=== PATIENT | female | born 1975 | race Caucasian/White ===

== ENCOUNTER 2018-04-15 10:48 | Emergency (ER) | payer OTHER, SELFPAY ==
[2018-04-15 11:00] VITALS: BP 118/84; PULSE 108; RESP 18; TEMP 36.4; O2SAT 98; BMI 31.9
--- NOTE | 2018-04-15 12:14 | PC.NURSE ---
pt was informed a second time about wait. informed her that Debi, [employer] or doctor will be in to see her shortly. pt reports to Jorge (pharmacy) that she has not been seen by anyone in the hospital. I reviewed what we spoke about with mom in room. requested pt to get a urine sample (second time) to help facilitate her hospital stay when provider comes in. the first time asked for a urine sample, the patient wanted to drink water. I asked her to wait on the water until provider sees her, in case they need her npo for a test or any procedure that could happen. verbalized understanding. Pt continues to be frustrated about seeing no one. emotional support. provider updated. will see pt nu.
--- NOTE | 2018-04-15 12:33 | PC.NURSE ---
Around 1100 when notifying pt that her mother was in the bathroom and will keep and eye out for her, I asked pt if there was anything else that the pt need pt stated the she needed a single male nurse. Reported to nursing.
--- NOTE | 2018-04-15 12:35 | ED.ABDPAIN ---
HPI - Abdominal Pain <LEX Benitez-BC - Last Filed: 04/15/18 23:18> General Chief Complaint: Abdominal Pain Stated Complaint: POST OP ISSUES AFTER LAPAROSCOPIC PROCEDURE Time Seen by Provider: 04/15/18 11:00 Source: patient Mode of arrival: ambulatory Limitations: no limitations History of Present Illness HPI narrative: Patient presents with chief complaint of lower abdominal pain. She states she had a laparoscopic hysterectomy recently and has been having pain since the surgery. She states that the cramping and stabbing pain in her lower abdomen has worsened over the past several days. She states her physician told her to come to the emergency department last Friday and sent records then. She states she did not want to come and last Friday so she came in today. Patient denies subjective fevers, complains of nausea. She denies vomiting, denies diarrhea. States she has a bowel movement every day was constipated for a while to go [id number]-[id number] medications for it. Her last bowel movement was this morning she states it was a half cup or half-dollar size. She states that there was some blood. She states she does have hemorrhoids. She denies lightheadedness and dizziness, but does complain of overall fatigue. She later complained of some pinkish vaginal discharge that had an odor but did not complain about this upon arrival. She denies dysuria urgency and frequency. Related Data Home Medications Medication Instructions Recorded Confirmed bupropion HCl [Wellbutrin XL] 300 mg PO QAM 04/15/18 04/15/18 hydrocodone-acetaminophen 1 tab PO Q6H PRN 04/15/18 04/15/18 ibuprofen 1 tab PO Q8H PRN 04/15/18 04/15/18 lamotrigine [Lamictal] 75 mg PO DAILY 04/15/18 04/15/18 Previous Rx's Medication Instructions Recorded metronidazole 1 applicator VAG BID 5 Days gram 04/15/18 nitrofurantoin monohyd/m-cryst 100 mg PO BID #14 cap 04/15/18 [Macrobid] phenazopyridine [Azo Urinary Pain 195 mg PO .tid prn 2 Days #12 tab 04/15/18 Relief] Allergies Allergy/AdvReac Type Severity Reaction Status Date / Time Sulfa (Sulfonamide Allergy Verified 04/15/18 11:07 Antibiotics) Review of Systems <JERSON BenitezP-BC - Last Filed: 04/15/18 23:18> Review of Systems GENERAL: Denies chills, fatigue, malaise, fever, sweats. HEENT: Denies sinus pain, ear pain, sore throat, difficulty swallowing, dizziness. RESPIRATORY: Denies dyspnea, cough, wheezing, hemoptysis, sputum. CARDIOVASCULAR: Denies chest pain, palpitations, orthopnea, edema, GASTROINTESTINAL: See HPI : See HPI MUSCULOSKELETAL: denies weakness, joint pain, or bony pain SKIN: Denies rash, skin lesions, or other NEUROLOGIC: Denies weakness, headache, numbness, change in speech, confusion, seizures, incoordination. PSYCHIATRIC: No concerning psychosocial issues. 12 point review of systems is negative except for those stated above Exam <Debi Lawton CLINICAL LIAISON-BC - Last Filed: 04/15/18 23:18> Narrative Exam Narrative: GENERAL: This is a well-nourished, well-developed patient, in mild distress. HEAD: Atraumatic. Normocephalic. No temporal or scalp tenderness. EYES: Pupils equal round and reactive. Extraocular motions intact. No scleral icterus. No injection or drainage. ENT: Nose without bleeding, purulent drainage or septal hematoma. Throat without erythema, tonsillar hypertrophy or exudate. Uvula midline. Airway patent. NECK: Trachea midline. No JVD or lymphadenopathy. Supple, nontender, no meningeal signs. CARDIOVASCULAR: Regular rate and rhythm without murmurs, gallops, or rubs. RESPIRATORY: Clear to auscultation. Breath sounds equal bilaterally. No wheezes, rales, or rhonchi. GASTROINTESTINAL: Abdomen soft, diffusely tender to palpation, nondistended. No hepato-splenomegaly, or palpable masses. No guarding. Active bowel sounds all 4 quadrants EXTREMITIES: No clubbing, cyanosis, or edema. No joint tenderness, effusion, or edema noted. BACK: Nontender without deformity or crepitance. No flank tenderness. NEURO: AOx3. SKIN: No rash or erythema. : Pinkish discharge noted on pelvic exam. External hemorrhoids noted on rectal exam. Payton BOLAÑOSA with customs director. Initial Vital Signs Initial Vital Signs: Vital Signs Temperature 97.5 F L 04/15/18 11:00 Pulse Rate 108 H 04/15/18 11:00 Respiratory Rate 18 04/15/18 11:00 Blood Pressure 118/84 04/15/18 11:00 Pulse Oximetry 98 04/15/18 11:00 <Debi Rodríguez DO - Last Filed: 04/16/18 08:23> Initial Vital Signs Initial Vital Signs: Vital Signs Temperature 97.5 F L 04/15/18 11:00 Pulse Rate 108 H 04/15/18 11:00 Respiratory Rate 18 04/15/18 11:00 Blood Pressure 118/84 04/15/18 11:00 Pulse Oximetry 98 04/15/18 11:00 Procedures <DAMIÁN Benitez - Last Filed: 04/15/18 23:18> Stool Hemoccult Procedural Steps Taken: stool placed in appropriate test area, developer placed on stool and control areas and controls appropriately positive and negative Hemoccult result: negative Course <DAMIÁN Benitez - Last Filed: 04/15/18 23:18> Orders Ordered: ED Orders 04/15/18 13:05 Amylase Stat Complete Blood Count AUTO DIFF Stat Comprehensive Metabolic Panel Stat Lipase Stat 04/15/18 13:14 XR abdomen min 2V Stat 04/15/18 13:38 Urine Culture Stat Urine Microscopic Stat 04/15/18 14:29 Urinalysis and Microscopic Stat The patient presented with several different complaints throughout her stay. We attempted to address all of her complaints including her vaginal discharge, generalized abdominal pain, and weakness. We did lab work, an abdominal x-ray, pelvic exam and rectal exam. The patient arrived requesting a CT scan with contrast, however I discussed that her abdomen does not have an acute exam, she is afebrile with stable vital signs and does not have an elevated white count. The patient was noted to be rolling her eyes the nurse's, closing doors in employees faces and writing down names and notes throughout her stay. I spoke with the surgeon vector control specialist from [facility] regarding the patient, who seem surprised that she was in [place]. I performed a wet prep as well as basic lab work encourage by the surgeon. I encourage the patient to go home and rest as per the surgeon's instructions. The patient did roll her eyes and thigh when I asked to verify her allergies prior to giving her antibiotics for urinary tract infection. Vital Signs - 8 hr 04/15/18 11:00 04/15/18 14:36 Temperature 97.5 F L 99.4 F Pulse Rate 108 H 94 H Respiratory Rate 18 16 Blood Pressure 118/84 Blood Pressure [Right Arm] 113/75 Pulse Oximetry 98 98 <Debi Rodríguez DO - Last Filed: 04/16/18 08:23> Orders Ordered: ED Orders 04/15/18 13:05 Amylase Stat Complete Blood Count AUTO DIFF Stat Comprehensive Metabolic Panel Stat Lipase Stat 04/15/18 13:14 XR abdomen min 2V Stat 04/15/18 13:38 Urine Culture Stat Urine Microscopic Stat 04/15/18 14:29 Urinalysis and Microscopic Stat Vital Signs - 8 hr 04/15/18 11:00 04/15/18 14:36 Temperature 97.5 F L 99.4 F Pulse Rate 108 H 94 H Respiratory Rate 18 16 Blood Pressure 118/84 Blood Pressure [Right Arm] 113/75 Pulse Oximetry 98 98 MDM - Abdominal Pain <LEX Benitez-BC - Last Filed: 04/15/18 23:18> Differential Diagnosis Differential diagnosis: Likely abdominal pain, constipation, endometriosis and small bowel obstruction Lab Data Result diagrams: 04/15/18 13:05 04/15/18 13:05 Lab Results 04/15/18 04/15/18 04/15/18 Range/Units 13:05 13:05 13:38 WBC 8.0 (4.5-11.0) X10^3/uL RBC 3.89 L (4.0-5.2) X10^6/uL Hgb 12.8 (12.0-16.0) g/dL Hct 38.1 (36-46) % MCV 97.8 (80-100) fL MCH 32.9 (26-34) PG MCHC 33.7 (30-36) % RDW 12.2 (11.6-14.8) % Plt Count 463 H (150-400) X10^3/uL Neut % (Auto) 67.0 (50-75) % Lymph % (Auto) 24.3 L (25-40) % Crane % (Auto) 6.3 (3-14) % Eos % (Auto) 1.7 L (2-4) % Baso % (Auto) 0.7 (0-2) % Neut # (Auto) 5400 (3323-1713) /uL Sodium 144 (137-145) mmol/L Potassium 4.4 (3.4-5.1) mmol/L Chloride 105 (98-107) mmol/L Carbon Dioxide 29 (22-32) mmol/L BUN 12 (7-17) mg/dL Creatinine 0.80 (0.52-1.04) mg/dL Estimated GFR > 60.0 (>60) mL/min BUN/Creatinine Ratio 15.0 (6-22) Glucose 92 (70-100) mg/dL Calcium 9.5 (8.4-10.2) mg/dL Total Bilirubin 0.4 (0.2-1.3) mg/dL AST 29 (14-36) IU/L ALT 51 (9-52) IU/L Alkaline Phosphatase 86 (38-126) U/L Total Protein 7.4 (6.3-8.2) g/dL Albumin 4.2 (3.5-5.0) g/dL Globulin 3.2 (1.7-4.1) g/dL Albumin/Globulin Ratio 1.3 (1.0-2.8) Amylase 50 (30-110) U/L Lipase 43 (23-300) U/L Urine RBC 1-5/hpf (0-5/HPF) Urine WBC 10-30/hpf H (0-5/HPF) Ur Squamous Epith Cells 0-1 /hpf Amorphous Sediment 1+ Urine Bacteria Few (2-10) H (None) Ur Culture Indicated? Specimen cultured Micro UA Comment Not Reportable Point of care testing: Urine Dip Bedside Urine Glucose Negative Bedside Urine Bilirubin - Negative Bedside Urine Ketone - Negative Urine Specific Mcguffey 1.015 Bedside Urine Occult Blood +++ Bedside Urine pH 6.5 Bedside Urine Protein - Negative Bedside Urine Urobilinogen - Negative Bedside Urine Nitrite - Negative Bedside Urine Leukocytes ++ 125 Esterase Imaging Data Abdominal x-ray: Radiologist's impression: [address] [address] XRay Report Signed Patient: VERA MOISE LMR#: [id number] : 1975Acct:[id number] Age/Sex: 42 / FDate of Service: 04/15/18 Loc: ED Accession Number: [id number] Procedure: XR abdomen min 2V Ordering Provider: Debi Lawton CLINICAL LIAISON-BC PROCEDURE: XR ABDOMEN MIN 2V INDICATIONS: constipation TECHNIQUE: 2 views of the abdomen were acquired. COMPARISON: None. FINDINGS: Surgical changes and devices: None. Bowel: No pneumoperitoneum. The bowel gas pattern is normal. A mild to moderate amount of stool can be seen within the colon. Soft tissues: No masses; visualized solid organ contours appear normal in size. No suspicious abdominal calcifications. Bones: No suspicious bony abnormalities. Lower lumbar spine degenerative changes are seen. IMPRESSION: A mild to moderate amount of stool can be seen within the colon, which is consistent with the given history of constipation. Dictated by: Rayo Renee M.D. on 04/15/2018 at 13:50 Approved by: Rayo Renee M.D. on 04/15/2018 at 13:51 MDM Narrative Medical decision making narrative: The patient presented with chief complaint of abdominal pain, vaginal discharge, and postop fatigue. Her lab work came back largely normal. She does have a small urinary tract infection, for which I am treating her with Macrobid. Her wet prep did reveal clue cells him treating her for bacterial vaginosis with Flagyl. I discussed at length following up with primary care provider as well as her surgeon as discussed. Encouraged rest, pushing fluids and taking medications as discussed. Patient had no questions or concerns upon discharge. <Debi Rodríguez, DO - Last Filed: 04/16/18 08:23> Lab Data Lab Results 04/15/18 04/15/18 04/15/18 Range/Units 13:05 13:05 13:38 WBC 8.0 (4.5-11.0) X10^3/uL RBC 3.89 L (4.0-5.2) X10^6/uL Hgb 12.8 (12.0-16.0) g/dL Hct 38.1 (36-46) % MCV 97.8 (80-100) fL MCH 32.9 (26-34) PG MCHC 33.7 (30-36) % RDW 12.2 (11.6-14.8) % Plt Count 463 H (150-400) X10^3/uL Neut % (Auto) 67.0 (50-75) % Lymph % (Auto) 24.3 L (25-40) % Crane % (Auto) 6.3 (3-14) % Eos % (Auto) 1.7 L (2-4) % Baso % (Auto) 0.7 (0-2) % Neut # (Auto) 5400 (0477-3445) /uL Sodium 144 (137-145) mmol/L Potassium 4.4 (3.4-5.1) mmol/L Chloride 105 (98-107) mmol/L Carbon Dioxide 29 (22-32) mmol/L BUN 12 (7-17) mg/dL Creatinine 0.80 (0.52-1.04) mg/dL Estimated GFR > 60.0 (>60) mL/min BUN/Creatinine Ratio 15.0 (6-22) Glucose 92 (70-100) mg/dL Calcium 9.5 (8.4-10.2) mg/dL Total Bilirubin 0.4 (0.2-1.3) mg/dL AST 29 (14-36) IU/L ALT 51 (9-52) IU/L Alkaline Phosphatase 86 (38-126) U/L Total Protein 7.4 (6.3-8.2) g/dL Albumin 4.2 (3.5-5.0) g/dL Globulin 3.2 (1.7-4.1) g/dL Albumin/Globulin Ratio 1.3 (1.0-2.8) Amylase 50 (30-110) U/L Lipase 43 (23-300) U/L Urine RBC 1-5/hpf (0-5/HPF) Urine WBC 10-30/hpf H (0-5/HPF) Ur Squamous Epith Cells 0-1 /hpf Amorphous Sediment 1+ Urine Bacteria Few (2-10) H (None) Ur Culture Indicated? Specimen cultured Micro UA Comment Not Reportable Point of care testing: Urine Dip Bedside Urine Glucose Negative Bedside Urine Bilirubin - Negative Bedside Urine Ketone - Negative Urine Specific Mcguffey 1.015 Bedside Urine Occult Blood +++ Bedside Urine pH 6.5 Bedside Urine Protein - Negative Bedside Urine Urobilinogen - Negative Bedside Urine Nitrite - Negative Bedside Urine Leukocytes ++ 125 Esterase Discharge Plan Departure Patient Disposition: Home Clinical Impression: UTI (urinary tract infection), Constipation, Bacterial vaginosis Discharge Date/Time: 04/15/18 16:00 Interventions: ED Discharge Assessment Last Done: 04/15/18 16:02 Instructions: DI for Urinary Tract Infection (UTI), DI for Bacterial Vaginosis, DI for Constipation Activity Restrictions/Additional Instructions: I am starting on an antibiotic for urinary tract infection as well as Flagyl for bacterial vaginosis. I have given you a small prescription of pyridium associated with your UTI pain. Please follow-up with her surgeon as well as her primary care provider. Please rest, push fluids and take it easy as the surgeon encouraged. Please come back to the emergency department for any acute needs. Prescriptions: New metronidazole 0.75 % gel 1 applicator VAG BID 5 Days RF: 0 nitrofurantoin monohyd/m-cryst [Macrobid] 100 mg capsule 100 mg PO BID Qty: 14 RF: 0 phenazopyridine [Azo Urinary Pain Relief] 97.5 mg tablet 195 mg PO .tid prn 2 Days Qty: 12 RF: 0 No Action ibuprofen 800 mg tablet 1 tab PO Q8H PRN (Reason: Pain, Moderate) RF: 0 hydrocodone-acetaminophen 5-325 mg tablet 1 tab PO Q6H PRN (Reason: Pain, Moderate) RF: 0 lamotrigine [Lamictal] 25 mg Tablet 75 mg PO DAILY RF: 0 bupropion HCl [Wellbutrin XL] 300 mg Tablet Extended Release 24 Hr 300 mg PO QAM RF: 0 <Debi Rodríguez DO - Last Filed: 04/16/18 08:23> Cosign ED Attending Cosignature Attestation: I was immediately available in the department for consultation. This documentation has been reviewed and I agree with assessment and plan. Supervised by Debi Rodríguez DO
[2018-04-15 13:09] LABS: Add Manual Diff / Slide Review NO; Basophils Percent Auto 0.7 % (0-2); Eosinophils Percent Auto 1.7 % (2-4); Hematocrit 38.1 % (36-46); Hemoglobin 12.8 g/dL (12.0-16.0); Lymphocytes Percent Auto 24.3 % (25-40); Mean Corpuscular HGB Conc 33.7 % (30-36); Mean Corpuscular Hemoglobin 32.9 PG (26-34); Mean Corpuscular Volume 97.8 fL (80-100); Monocytes Percent Auto 6.3 % (3-14); Neutrophils Absolute Auto 5400 /uL (3000-5900); Platelet Count 463 X10^3/uL (150-400); Red Blood Cell Count 3.89 X10^6/uL (4.0-5.2); Red Cell Distribution Width 12.2 % (11.6-14.8)
--- NOTE | 2018-04-15 13:09 | PC.NURSE ---
explained a clean catch urine to patient. I gave her a wipe and a cup. As the I was explaining how to obtain a clean catch urine specimen, pt was closing the door in my face, rolling her eyes. PA notified.
--- NOTE | 2018-04-15 13:14 | DI.RAD.S_ITS ---
PROCEDURE: XR ABDOMEN MIN 2V INDICATIONS: constipation TECHNIQUE: 2 views of the abdomen were acquired. COMPARISON: None. FINDINGS: Surgical changes and devices: None. Bowel: No pneumoperitoneum. The bowel gas pattern is normal. A mild to moderate amount of stool can be seen within the colon. Soft tissues: No masses; visualized solid organ contours appear normal in size. No suspicious abdominal calcifications. Bones: No suspicious bony abnormalities. Lower lumbar spine degenerative changes are seen. IMPRESSION: A mild to moderate amount of stool can be seen within the colon, which is consistent with the given history of constipation. Dictated by: Rayo Renee M.D. on 04/15/2018 at 13:50 Approved by: Rayo Renee M.D. on 04/15/2018 at 13:51
--- NOTE | 2018-04-15 13:19 | ED_ITS ---
HPI - Abdominal Pain <LEX Benitez-BC - Last Filed: 04/15/18 23:18> General Chief Complaint: Abdominal Pain Stated Complaint: POST OP ISSUES AFTER LAPAROSCOPIC PROCEDURE Time Seen by Provider: 04/15/18 11:00 Source: patient Mode of arrival: ambulatory Limitations: no limitations History of Present Illness HPI narrative: Patient presents with chief complaint of lower abdominal pain. She states she had a laparoscopic hysterectomy recently and has been having pain since the surgery. She states that the cramping and stabbing pain in her lower abdomen has worsened over the past several days. She states her physician told her to come to the emergency department last Friday and sent records then. She states she did not want to come and last Friday so she came in today. Patient denies subjective fevers, complains of nausea. She denies vomiting, denies diarrhea. States she has a bowel movement every day was constipated for a while to go putw-[id number] medications for it. Her last bowel movement was this morning she states it was a half cup or half-dollar size. She states that there was some blood. She states she does have hemorrhoids. She denies lightheadedness and dizziness, but does complain of overall fatigue. She later complained of some pinkish vaginal discharge that had an odor but did not complain about this upon arrival. She denies dysuria urgency and frequency. Related Data Home Medications Medication Instructions Recorded Confirmed bupropion HCl [Wellbutrin XL] 300 mg PO QAM 04/15/18 04/15/18 hydrocodone-acetaminophen 1 tab PO Q6H PRN 04/15/18 04/15/18 ibuprofen 1 tab PO Q8H PRN 04/15/18 04/15/18 lamotrigine [Lamictal] 75 mg PO DAILY 04/15/18 04/15/18 Previous Rx's Medication Instructions Recorded metronidazole 1 applicator VAG BID 5 Days gram 04/15/18 nitrofurantoin monohyd/m-cryst 100 mg PO BID #14 cap 04/15/18 [Macrobid] phenazopyridine [Azo Urinary Pain 195 mg PO .tid prn 2 Days #12 tab 04/15/18 Relief] Allergies Allergy/AdvReac Type Severity Reaction Status Date / Time Sulfa (Sulfonamide Allergy Verified 04/15/18 11:07 Antibiotics) Review of Systems <JERSON BenitezP-BC - Last Filed: 04/15/18 23:18> Review of Systems GENERAL: Denies chills, fatigue, malaise, fever, sweats. HEENT: Denies sinus pain, ear pain, sore throat, difficulty swallowing, dizziness. RESPIRATORY: Denies dyspnea, cough, wheezing, hemoptysis, sputum. CARDIOVASCULAR: Denies chest pain, palpitations, orthopnea, edema, GASTROINTESTINAL: See HPI : See HPI MUSCULOSKELETAL: denies weakness, joint pain, or bony pain SKIN: Denies rash, skin lesions, or other NEUROLOGIC: Denies weakness, headache, numbness, change in speech, confusion, seizures, incoordination. PSYCHIATRIC: No concerning psychosocial issues. 12 point review of systems is negative except for those stated above Exam <Debi Lawton AUTOMATIC DIE CUTTING MACHINE OPERATOR-BC - Last Filed: 04/15/18 23:18> Narrative Exam Narrative: GENERAL: This is a well-nourished, well-developed patient, in mild distress. HEAD: Atraumatic. Normocephalic. No temporal or scalp tenderness. EYES: Pupils equal round and reactive. Extraocular motions intact. No scleral icterus. No injection or drainage. ENT: Nose without bleeding, purulent drainage or septal hematoma. Throat without erythema, tonsillar hypertrophy or exudate. Uvula midline. Airway patent. NECK: Trachea midline. No JVD or lymphadenopathy. Supple, nontender, no meningeal signs. CARDIOVASCULAR: Regular rate and rhythm without murmurs, gallops, or rubs. RESPIRATORY: Clear to auscultation. Breath sounds equal bilaterally. No wheezes , rales, or rhonchi. GASTROINTESTINAL: Abdomen soft, diffusely tender to palpation, nondistended. No hepato-splenomegaly, or palpable masses. No guarding. Active bowel sounds all 4 quadrants EXTREMITIES: No clubbing, cyanosis, or edema. No joint tenderness, effusion, or edema noted. BACK: Nontender without deformity or crepitance. No flank tenderness. NEURO: AOx3. SKIN: No rash or erythema. : Pinkish discharge noted on pelvic exam. External hemorrhoids noted on rectal exam. Payton BOLAÑOSA with web application dev specialist. Initial Vital Signs Initial Vital Signs: Vital Signs Temperature 97.5 F L 04/15/18 11:00 Pulse Rate 108 H 04/15/18 11:00 Respiratory Rate 18 04/15/18 11:00 Blood Pressure 118/84 04/15/18 11:00 Pulse Oximetry 98 04/15/18 11:00 <Debi Rodríguez DO - Last Filed: 04/16/18 08:23> Initial Vital Signs Initial Vital Signs: Vital Signs Temperature 97.5 F L 04/15/18 11:00 Pulse Rate 108 H 04/15/18 11:00 Respiratory Rate 18 04/15/18 11:00 Blood Pressure 118/84 04/15/18 11:00 Pulse Oximetry 98 04/15/18 11:00 Procedures <DAMIÁN Benitez - Last Filed: 04/15/18 23:18> Stool Hemoccult Procedural Steps Taken: stool placed in appropriate test area, developer placed on stool and control areas and controls appropriately positive and negative Hemoccult result: negative Course <DAMIÁN Benitez - Last Filed: 04/15/18 23:18> Orders Ordered: ED Orders 04/15/18 13:05 Amylase Stat Complete Blood Count AUTO DIFF Stat Comprehensive Metabolic Panel Stat Lipase Stat 04/15/18 13:14 XR abdomen min 2V Stat 04/15/18 13:38 Urine Culture Stat Urine Microscopic Stat 04/15/18 14:29 Urinalysis and Microscopic Stat The patient presented with several different complaints throughout her stay. We attempted to address all of her complaints including her vaginal discharge, generalized abdominal pain, and weakness. We did lab work, an abdominal x-ray, pelvic exam and rectal exam. The patient arrived requesting a CT scan with contrast, however I discussed that her abdomen does not have an acute exam, she is afebrile with stable vital signs and does not have an elevated white count. The patient was noted to be rolling her eyes the nurse's, closing doors in employees faces and writing down names and notes throughout her stay. I spoke with the surgeon clothes ironer from [facility] regarding the patient, who seem surprised that she was in [place]. I performed a wet prep as well as basic lab work encourage by the surgeon. I encourage the patient to go home and rest as per the surgeon's instructions. The patient did roll her eyes and thigh when I asked to verify her allergies prior to giving her antibiotics for urinary tract infection. Vital Signs - 8 hr 04/15/18 11:00 04/15/18 14:36 Temperature 97.5 F L 99.4 F Pulse Rate 108 H 94 H Respiratory Rate 18 16 Blood Pressure 118/84 Blood Pressure [Right Arm] 113/75 Pulse Oximetry 98 98 <Debi Rodríguez DO - Last Filed: 04/16/18 08:23> Orders Ordered: ED Orders 04/15/18 13:05 Amylase Stat Complete Blood Count AUTO DIFF Stat Comprehensive Metabolic Panel Stat Lipase Stat 04/15/18 13:14 XR abdomen min 2V Stat 04/15/18 13:38 Urine Culture Stat Urine Microscopic Stat 04/15/18 14:29 Urinalysis and Microscopic Stat Vital Signs - 8 hr 04/15/18 11:00 04/15/18 14:36 Temperature 97.5 F L 99.4 F Pulse Rate 108 H 94 H Respiratory Rate 18 16 Blood Pressure 118/84 Blood Pressure [Right Arm] 113/75 Pulse Oximetry 98 98 MDM - Abdominal Pain <LEX Benitez-BC - Last Filed: 04/15/18 23:18> Differential Diagnosis Differential diagnosis: Likely abdominal pain, constipation, endometriosis and small bowel obstruction Lab Data Result diagrams: 04/15/18 13:05 04/15/18 13:05 Lab Results 04/15/18 04/15/18 04/15/18 Range/Units 13:05 13:05 13:38 WBC 8.0 (4.5-11.0) X10^3/uL RBC 3.89 L (4.0-5.2) X10^6/uL Hgb 12.8 (12.0-16.0) g/dL Hct 38.1 (36-46) % MCV 97.8 (80-100) fL MCH 32.9 (26-34) PG MCHC 33.7 (30-36) % RDW 12.2 (11.6-14.8) % Plt Count 463 H (150-400) X10^3/uL Neut % (Auto) 67.0 (50-75) % Lymph % (Auto) 24.3 L (25-40) % Haakon % (Auto) 6.3 (3-14) % Eos % (Auto) 1.7 L (2-4) % Baso % (Auto) 0.7 (0-2) % Neut # (Auto) 5400 (0920-4666) /uL Sodium 144 (137-145) mmol/L Potassium 4.4 (3.4-5.1) mmol/L Chloride 105 (98-107) mmol/L Carbon Dioxide 29 (22-32) mmol/L BUN 12 (7-17) mg/dL Creatinine 0.80 (0.52-1.04) mg/dL Estimated GFR > 60.0 (>60) mL/min BUN/Creatinine Ratio 15.0 (6-22) Glucose 92 (70-100) mg/dL Calcium 9.5 (8.4-10.2) mg/dL Total Bilirubin 0.4 (0.2-1.3) mg/dL AST 29 (14-36) IU/L ALT 51 (9-52) IU/L Alkaline Phosphatase 86 (38-126) U/L Total Protein 7.4 (6.3-8.2) g/dL Albumin 4.2 (3.5-5.0) g/dL Globulin 3.2 (1.7-4.1) g/dL Albumin/Globulin Ratio 1.3 (1.0-2.8) Amylase 50 (30-110) U/L Lipase 43 (23-300) U/L Urine RBC 1-5/hpf (0-5/HPF) Urine WBC 10-30/hpf H (0-5/HPF) Ur Squamous Epith Cells 0-1 /hpf Amorphous Sediment 1+ Urine Bacteria Few (2-10) H (None) Ur Culture Indicated? Specimen cultured Micro UA Comment Not Reportable Point of care testing: Urine Dip Bedside Urine Glucose Negative Bedside Urine Bilirubin - Negative Bedside Urine Ketone - Negative Urine Specific [place] 1.015 Bedside Urine Occult Blood +++ Bedside Urine pH 6.5 Bedside Urine Protein - Negative Bedside Urine Urobilinogen - Negative Bedside Urine Nitrite - Negative Bedside Urine Leukocytes ++ 125 Esterase Imaging Data Abdominal x-ray: Radiologist's impression: [address] [address] XRay Report Signed Patient: VERA MOISE LMR#: [id number] : 1975Acct:[id number] Age/Sex: 42 / FDate of Service: 04/15/18 Loc: ED Accession Number: [id number] Procedure: XR abdomen min 2V Ordering Provider: Debi Lawton AUTOMATIC DIE CUTTING MACHINE OPERATOR-BC PROCEDURE: XR ABDOMEN MIN 2V INDICATIONS: constipation TECHNIQUE: 2 views of the abdomen were acquired. COMPARISON: None. FINDINGS: Surgical changes and devices: None. Bowel: No pneumoperitoneum. The bowel gas pattern is normal. A mild to moderate amount of stool can be seen within the colon. Soft tissues: No masses; visualized solid organ contours appear normal in size. No suspicious abdominal calcifications. Bones: No suspicious bony abnormalities. Lower lumbar spine degenerative changes are seen. IMPRESSION: A mild to moderate amount of stool can be seen within the colon, which is consistent with the given history of constipation. Dictated by: Rayo Renee M.D. on 04/15/2018 at 13:50 Approved by: Rayo Renee M.D. on 04/15/2018 at 13:51 MDM Narrative Medical decision making narrative: The patient presented with chief complaint of abdominal pain, vaginal discharge, and postop fatigue. Her lab work came back largely normal. She does have a small urinary tract infection, for which I am treating her with Macrobid. Her wet prep did reveal clue cells him treating her for bacterial vaginosis with Flagyl. I discussed at length following up with primary care provider as well as her surgeon as discussed. Encouraged rest , pushing fluids and taking medications as discussed. Patient had no questions or concerns upon discharge. <Debi Rodríguez, DO - Last Filed: 04/16/18 08:23> Lab Data Lab Results 04/15/18 04/15/18 04/15/18 Range/Units 13:05 13:05 13:38 WBC 8.0 (4.5-11.0) X10^3/uL RBC 3.89 L (4.0-5.2) X10^6/uL Hgb 12.8 (12.0-16.0) g/dL Hct 38.1 (36-46) % MCV 97.8 (80-100) fL MCH 32.9 (26-34) PG MCHC 33.7 (30-36) % RDW 12.2 (11.6-14.8) % Plt Count 463 H (150-400) X10^3/uL Neut % (Auto) 67.0 (50-75) % Lymph % (Auto) 24.3 L (25-40) % Haakon % (Auto) 6.3 (3-14) % Eos % (Auto) 1.7 L (2-4) % Baso % (Auto) 0.7 (0-2) % Neut # (Auto) 5400 (5954-5621) /uL Sodium 144 (137-145) mmol/L Potassium 4.4 (3.4-5.1) mmol/L Chloride 105 (98-107) mmol/L Carbon Dioxide 29 (22-32) mmol/L BUN 12 (7-17) mg/dL Creatinine 0.80 (0.52-1.04) mg/dL Estimated GFR > 60.0 (>60) mL/min BUN/Creatinine Ratio 15.0 (6-22) Glucose 92 (70-100) mg/dL Calcium 9.5 (8.4-10.2) mg/dL Total Bilirubin 0.4 (0.2-1.3) mg/dL AST 29 (14-36) IU/L ALT 51 (9-52) IU/L Alkaline Phosphatase 86 (38-126) U/L Total Protein 7.4 (6.3-8.2) g/dL Albumin 4.2 (3.5-5.0) g/dL Globulin 3.2 (1.7-4.1) g/dL Albumin/Globulin Ratio 1.3 (1.0-2.8) Amylase 50 (30-110) U/L Lipase 43 (23-300) U/L Urine RBC 1-5/hpf (0-5/HPF) Urine WBC 10-30/hpf H (0-5/HPF) Ur Squamous Epith Cells 0-1 /hpf Amorphous Sediment 1+ Urine Bacteria Few (2-10) H (None) Ur Culture Indicated? Specimen cultured Micro UA Comment Not Reportable Point of care testing: Urine Dip Bedside Urine Glucose Negative Bedside Urine Bilirubin - Negative Bedside Urine Ketone - Negative Urine Specific [place] 1.015 Bedside Urine Occult Blood +++ Bedside Urine pH 6.5 Bedside Urine Protein - Negative Bedside Urine Urobilinogen - Negative Bedside Urine Nitrite - Negative Bedside Urine Leukocytes ++ 125 Esterase Discharge Plan Departure Patient Disposition: Home Clinical Impression: UTI (urinary tract infection), Constipation, Bacterial vaginosis Discharge Date/Time: 04/15/18 16:00 Interventions: ED Discharge Assessment Last Done: 04/15/18 16:02 Instructions: DI for Urinary Tract Infection (UTI), DI for Bacterial Vaginosis , DI for Constipation Activity Restrictions/Additional Instructions: I am starting on an antibiotic for urinary tract infection as well as Flagyl for bacterial vaginosis. I have given you a small prescription of pyridium associated with your UTI pain. Please follow-up with her surgeon as well as her primary care provider. Please rest, push fluids and take it easy as the surgeon encouraged. Please come back to the emergency department for any acute needs. Prescriptions: New metronidazole 0.75 % gel 1 applicator VAG BID 5 Days RF: 0 nitrofurantoin monohyd/m-cryst [Macrobid] 100 mg capsule 100 mg PO BID Qty: 14 RF: 0 phenazopyridine [Azo Urinary Pain Relief] 97.5 mg tablet 195 mg PO .tid prn 2 Days Qty: 12 RF: 0 No Action ibuprofen 800 mg tablet 1 tab PO Q8H PRN (Reason: Pain, Moderate) RF: 0 hydrocodone-acetaminophen 5-325 mg tablet 1 tab PO Q6H PRN (Reason: Pain, Moderate) RF: 0 lamotrigine [Lamictal] 25 mg Tablet 75 mg PO DAILY RF: 0 bupropion HCl [Wellbutrin XL] 300 mg Tablet Extended Release 24 Hr 300 mg PO QAM RF: 0 <Debi Rodríguez DO - Last Filed: 04/16/18 08:23> Cosign ED Attending Cosignature Attestation: I was immediately available in the department for consultation. This documentation has been reviewed and I agree with assessment and plan. Supervised by Debi Rodríguez DO
[2018-04-15 13:22] LABS: Alanine Aminotransferase 51 IU/L (9-52); Albumin 4.2 g/dL (3.5-5.0); Albumin Globulin Ratio 1.3 (1.0-2.8); Alkaline Phosphatase 86 U/L (38-126); Amylase 50 U/L (30-110); Aspartate Aminotransferase 29 IU/L (14-36); Bilirubin Total 0.4 mg/dL (0.2-1.3); Blood Urea Nitrogen 12 mg/dL (7-17); Calcium 9.5 mg/dL (8.4-10.2); Carbon Dioxide 29 mmol/L (22-32); Chloride 105 mmol/L (98-107); Estimated Glomerular Filt Rate > 60.0 mL/min (>60); Globulin 3.2 g/dL (1.7-4.1); Glucose 92 mg/dL (70-100); HEMOLYSIS < 15 (0-50); Lipase 43 U/L (23-300); Potassium 4.4 mmol/L (3.4-5.1); Sodium 144 mmol/L (137-145); Total Protein 7.4 g/dL (6.3-8.2)
[2018-04-15 13:49] LABS: Amorphous Sediment Urine 1+; Bacteria Urine Few (2-10); Culture Indicated Urine Specimen Cultured; RBC Urine 1-5/HPF (0-5/HPF); Squamous Epithelial Cell Urine 0-1 /HPF; WBC Urine 10-30/HPF (0-5/HPF)
--- NOTE | 2018-04-15 14:28 | PC.NURSE ---
LETTY Gu, obtained specimens. BRIDGER Barrett at bedside for standby assist.
[2018-04-15 14:36] VITALS: BP 113/75; PULSE 94; RESP 16; TEMP 37.4; O2SAT 98
== END 2018-04-15 16:00 | disposition home or self-care (01) ==
PROVIDERS: Emergency Provider Nurse Practitioner Family
DX: N39.0 Urinary tract infection, site not specified (principal); K59.00 Constipation, unspecified; N76.0 Acute vaginitis
CPT/HCPCS: 36415; 74019; 80053; 81003; 81015; 82150; 83690; 85025; 87086; 87210; 99282; 99284

== ENCOUNTER 2019-07-01 13:17 | Emergency (ER) | payer OTHER, MEDICAID, SELFPAY ==
[2019-07-01 13:20] VITALS: BP 135/84; PULSE 83; RESP 16; TEMP 36.2; O2SAT 99; BMI 29.0
--- NOTE | 2019-07-01 15:26 | PC.NURSE ---
Reports sinus infection since 06/14. taking OTC medications without relief. pressure and congestion in nose and face and reports ears feel full and clogged. Lungs clear. 98% RA.
--- NOTE | 2019-07-01 16:00 | ED_ITS ---
HPI - URI/Sore Throat <Laure Fisher PA-C - Last Filed: 07/01/19 20:46> General Chief Complaint: Upper Respiratory Symptoms Stated Complaint: sinus infection Time Seen by Provider: 07/01/19 13:39 Source: patient Mode of arrival: Ambulatory Limitations: no limitations History of Present Illness HPI Narrative: This 43-year-old female comes to ED secondary to concern for sinus infection. She states that she has had pain throughout her sinuses since July 14, with clogged, popping years and earache. She denies sore throat. She states she has occasional cough, no discolored nasal mucus. She denies any fevers. She denies any wheeze or dyspnea. Assembly Line Inspector notes that she seems a little bit better this week. She has been using Mucinex and compresses as well as humidifier. She tried to irrigate her nose with salt water but too congested. She also moved here recently and this is a new climate for her. She denies other new complaints on systems review Related Data Home Medications Medication Instructions Recorded Confirmed bupropion HCl [Wellbutrin XL] 300 mg PO QAM 04/15/18 04/15/18 hydrocodone-acetaminophen 1 tab PO Q6H PRN 04/15/18 04/15/18 ibuprofen 1 tab PO Q8H PRN 04/15/18 04/15/18 lamotrigine [Lamictal] 75 mg PO DAILY 04/15/18 04/15/18 Previous Rx's Medication Instructions Recorded nitrofurantoin monohyd/m-cryst 100 mg PO BID #14 cap 04/15/18 [Macrobid] Allergies Allergy/AdvReac Type Severity Reaction Status Date / Time Sulfa (Sulfonamide Allergy Verified 07/01/19 13:22 Antibiotics) Review of Systems <Laure Fisher PA-C - Last Filed: 07/01/19 20:46> Review of Systems ROS Unobtainable: All systems reviewed & are unremarkable except as noted in HPI and below Patient History <Laure Fisher PA-C - Last Filed: 07/01/19 20:46> Medical History (Updated 07/01/19 @ 16:26 by Laure Fisher PA-C) Hx of bipolar disorder (Suspected) Surgical History (Updated 07/01/19 @ 16:26 by Laure Fisher PA-C) Status post (Resolved) Status post hysterectomy (Resolved) Social History Smoking Status: Current some day smoker Smoking Status: Current some day smoker alcohol intake frequency: holidays/special occasions only Substance Use Type: does not use Exam <Laure Fisher PA-C - Last Filed: 07/01/19 20:46> Narrative Exam Narrative: GENERAL APPEARANCE: Patient sitting comfortably, in no distress. HEAD: Moderate generalized sinus tenderness EYES: PERRL, EOMI. EARS: Normal auditory canals, TMS intact with normal light reflexes. ORAL CAVITY: Normal oropharynx. No gum swelling or tooth tenderness. THROAT: Slight PND noted NECK/THYROID: Neck supple, full range of motion, no cervical lymphadenopathy. LUNGS: Clear to auscultation bilaterally, no cough on exam. HEART: RRR without murmur, nl S1, S2, no S3 or S4. Initial Vital Signs Initial Vital Signs: Vital Signs Temperature 97.1 F L 07/01/19 13:20 Pulse Rate 83 07/01/19 13:20 Respiratory Rate 16 07/01/19 13:20 Blood Pressure 135/84 07/01/19 13:20 Pulse Oximetry 99 07/01/19 13:20 <Pat Jason MD - Last Filed: 07/10/19 07:19> Initial Vital Signs Initial Vital Signs: Vital Signs Temperature 97.1 F L 07/01/19 13:20 Pulse Rate 83 07/01/19 13:20 Respiratory Rate 16 07/01/19 13:20 Blood Pressure 135/84 07/01/19 13:20 Pulse Oximetry 99 07/01/19 13:20 Course <Laure Fisher PA-C - Last Filed: 07/01/19 20:46> Vital Signs Vital signs: Vital Signs - 8 hr 07/01/19 13:20 07/01/19 16:35 Temperature 97.1 F L Pulse Rate 83 80 Respiratory Rate 16 16 Blood Pressure 135/84 132/77 Pulse Oximetry 99 97 <Pat Jason MD - Last Filed: 07/10/19 07:19> Vital Signs Vital signs: Vital Signs - 8 hr 07/01/19 13:20 07/01/19 16:35 Temperature 97.1 F L Pulse Rate 83 80 Respiratory Rate 16 16 Blood Pressure 135/84 132/77 Pulse Oximetry 99 97 Discharge Plan Departure Patient Disposition: Home Clinical Impression: Sinusitis Qualifiers: Sinusitis location: unspecified location Chronicity: subacute Qualified Code(s): J01.90 - Acute sinusitis, unspecified Discharge Date/Time: 07/01/19 16:36 Instructions: DI for Sinusitis Activity Restrictions/Additional Instructions: The vast majority of sinus infections are caused by viruses and improve on their own with time. Given the climate change for you recently, allergy could be a part of this as well. Please start taking pseudoephedrine to help with the congestion. If needed, use Afrin for 2 days only for congestion, then use an doas-eyx-qoorfbo steroid nasal spray such as fluticasone, to help with the inflammation and congestion (keep in mind it will likely take about 5-7 days to see the full effect). Also start an antihistamine such as cetirizine (Zyrtec) 10 mg once daily. Schedule to see your new PCP in a week or so for recheck. As we talked about, you should return in the interim if you have any acutely worsening symptoms, i.e. severe headache, high fever, etc. Prescriptions: No Action ibuprofen 800 mg tablet 1 tab PO Q8H PRN (Reason: Pain, Moderate) RF: 0 hydrocodone-acetaminophen 5-325 mg tablet 1 tab PO Q6H PRN (Reason: Pain, Moderate) RF: 0 lamotrigine [Lamictal] 25 mg Tablet 75 mg PO DAILY RF: 0 bupropion HCl [Wellbutrin XL] 300 mg Tablet Extended Release 24 Hr 300 mg PO QAM RF: 0 nitrofurantoin monohyd/m-cryst [Macrobid] 100 mg capsule 100 mg PO BID Qty: 14 RF: 0
[2019-07-01 16:35] VITALS: BP 132/77; PULSE 80; RESP 16; O2SAT 97
== END 2019-07-01 16:36 | disposition home or self-care (01) ==
PROVIDERS: Emergency Provider Internal Medicine
DX: J01.90 Acute sinusitis, unspecified (principal)
CPT/HCPCS: 99282

== ENCOUNTER → 2020-03-14 14:58 | Outpatient (CLI) | payer OTHER, MEDICAID, SELFPAY ==
[2020-03-14 15:35] LABS: Hematocrit 39.7 % (36-46); Hemoglobin 13.5 g/dL (12.0-16.0); Mean Corpuscular HGB Conc 33.9 % (30-36); Mean Corpuscular Hemoglobin 32.2 PG (26-34); Mean Corpuscular Volume 94.9 fL (80-100); Platelet Count 359 X10^3/uL (150-400); Red Blood Cell Count 4.19 X10^6/uL (4.0-5.2); Red Cell Distribution Width 12.5 % (11.6-14.8); White Blood Cell Count 9.1 X10^3/uL (4.5-11.0)
[2020-03-14 16:28] LABS: TSH w/ Reflex to FT4 3.21 uIU/mL (0.47-4.68)
== END ==
PROVIDERS: PCP Nurse Practitioner Family; Referring Provider Nurse Practitioner Family; Visit Provider Nurse Practitioner Family
DX: L08.9 Local infection of the skin and subcutaneous tissue, unspecified (principal); Z83.49 Family history of other endocrine, nutritional and metabolic diseases
CPT/HCPCS: 36415; 84443; 85027

== ENCOUNTER → 2020-04-11 09:51 | Outpatient (CLI) | payer OTHER, MEDICAID, SELFPAY ==
[2020-04-11 10:09] LABS: WBC Urine None Seen (0-5/HPF)
[2020-04-11 11:34] LABS: Appearance Urine UA CLEAR; Bilirubin Urine UA NEGATIVE (NEGATIVE); Color Urine UA YELLOW; Glucose Urine UA NEGATIVE (Negative); Ketones Urine UA NEGATIVE (NEGATIVE); Leukocyte Esterase Urine UA NEGATIVE (NEGATIVE); Nitrite Urine UA NEGATIVE (Negative); Occult Blood Urine UA TRACE-INTACT (Negative); Protein Urine UA NEGATIVE (Negative); Specific Gravity Urine UA <=1.005 (1.000-1.035); Urobilinogen Urine UA 0.2 E.U./dL (0.2)
[2020-04-11 11:35] LABS: Add Manual Diff / Slide Review NO; Basophils Absolute Auto 0 /uL (0-100); Basophils Percent Auto 0.6 % (0-2); Eosinophils Absolute Auto 100 /uL (0-450); Eosinophils Percent Auto 1.7 % (2-4); Hematocrit 41.4 % (36-46); Hemoglobin 14.1 g/dL (12.0-16.0); Lymphocytes Absolute Auto 2000 /uL (1100-4500); Lymphocytes Percent Auto 26.8 % (25-40); Mean Corpuscular HGB Conc 34.1 % (30-36); Mean Corpuscular Hemoglobin 32.3 PG (26-34); Mean Corpuscular Volume 94.8 fL (80-100); Monocytes Absolute Auto 500 /uL (0-900); Monocytes Percent Auto 6.4 % (3-14); Neutrophils Absolute Auto 4900 /uL (1500-7000); Neutrophils Percent Auto 64.5 % (50-75); Platelet Count 362 X10^3/uL (150-400); Red Blood Cell Count 4.36 X10^6/uL (4.0-5.2); Red Cell Distribution Width 12.8 % (11.6-14.8); White Blood Cell Count 7.6 X10^3/uL (4.5-11.0)
[2020-04-11 11:39] LABS: pH Urine UA 6.5 (4.5-8.0)
[2020-04-11 12:28] LABS: Bacteria Urine Occasional (0-1); Culture Indicated Urine Cult Not Indicated; RBC Urine 0-1/HPF (0-5/HPF); Squamous Epithelial Cell Urine 0-1 /HPF (0-5/HPF)
[2020-04-11 12:30] LABS: TSH w/ Reflex to FT4 2.47 uIU/mL (0.47-4.68)
--- NOTE | 2020-04-11 14:03 | DI.US.S_ITS ---
PROCEDURE: US ABDOMEN COMPLETE INDICATIONS: PAIN TECHNIQUE: Real-time scanning was performed of the abdominal and retroperitoneal organs, with image documentation. COMPARISON: [facility], US, US PELVIC COMPLETE, 04/11/2020, 14:46. FINDINGS: Liver: Liver is normal in size and homogeneous in echotexture. Gallbladder: No findings of gallstones or sludge are seen. The gallbladder wall is not thickened, measuring 3 mm or less. No specific pericholecystic fluid is seen. The sonographic Shelton sign is negative. Biliary ducts: Intrahepatic bile ducts are non-dilated. Extrahepatic bile duct caliber measures 4 mm. Normal is 6-7 mm or less in diameter, or 10 mm or less post-cholecystectomy. Pancreas: Visualized portions of the pancreas are sonographically normal. Spleen: Spleen is normal in size and homogeneous in echotexture. Kidneys: Kidneys are normal in size and echotexture. Right kidney measures 10.6 cm long; left kidney measures 10.7 cm long. No hydronephrosis. Nonobstructing right-sided kidney stones are seen, which measure 6 mm superiorly and 5 mm within the right mid kidney. No left-sided stones are seen. No solid masses. Aorta: Visualized aorta is normal in caliber at less than 3 cm. Iliacs: Proximal common iliac arteries are normal in caliber at less than 2.5 cm. IVC: Intrahepatic inferior vena cava is patent. Miscellaneous: No free abdominal fluid. IMPRESSION: Nonobstructing right-sided kidney stones. The gallbladder demonstrates a normal sonographic appearance. No biliary dilatation is seen. A Dictated by: Rayo Renee M.D. on 04/11/2020 at 16:14 Approved by: Rayo Renee M.D. on 04/11/2020 at 16:15
--- NOTE | 2020-04-11 14:03 | DI.US.S_ITS ---
PROCEDURE: US PELVIC COMPLETE INDICATIONS: PAIN TECHNIQUE: Real-time scanning was performed of the pelvic organs, with image documentation. Additional endovaginal scanning was necessary due to incomplete visualization of the adnexal and endometrial structures by transabdominal scanning. COMPARISON: None. FINDINGS: Transabdominal scanning: Limited scanning through the kidneys shows no hydronephrosis. No pathologic free abdominal or pelvic fluid. Endovaginal scanning: Uterus: Surgically absent. Left adnexal mass is present measuring 3.2 x 2.7 x 2.6 cm. 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 IMPRESSION: Left adnexal solid appearing (versus complex cystic) mass, of indeterminate etiology. Technically cannot exclude ovarian neoplasm until surgical absence of the ovaries is confirmed definitively. Recommend surgical consultation and management. Definitive evaluation may require laparoscopic follow-up to exclude neoplasm. Please correlate clinically and with operative reports. If necessary correlation with CA 125 biochemical data could be considered. This could also be further assessed with dedicated contrast enhanced gynecological protocol MRI. Dictated by: Marquez Sierra M.D. on 04/11/2020 at 17:41 Approved by: Marquez Sierra M.D. on 04/11/2020 at 17:48
[2020-04-11 18:40] LABS: Alanine Aminotransferase 28 IU/L (<35); Albumin 4.4 g/dL (3.5-5.0); Albumin Globulin Ratio 1.4 (1.0-2.8); Alkaline Phosphatase 77 U/L (38-126); Aspartate Aminotransferase 26 IU/L (14-36); Bilirubin Total 0.5 mg/dL (0.2-1.3); Blood Urea Nitrogen 8 mg/dL (7-17); Calcium 10.1 mg/dL (8.4-10.2); Carbon Dioxide 24 mmol/L (22-32); Chloride 106 mmol/L (98-107); Estimated Glomerular Filt Rate > 60.0 mL/min (>60); Globulin 3.1 g/dL (1.7-4.1); Glucose 74 mg/dL (70-100); HEMOLYSIS < 15 (0-50); Potassium 4.6 mmol/L (3.4-5.1); Sodium 138 mmol/L (137-145); Total Protein 7.5 g/dL (6.3-8.2)
== END ==
PROVIDERS: PCP Nurse Practitioner Family; Referring Provider Nurse Practitioner Family; Visit Provider Nurse Practitioner Family
DX: K57.90 Diverticulosis of intestine, part unspecified, without perforation or abscess without bleeding (principal); R10.2 Pelvic and perineal pain; R10.9 Unspecified abdominal pain; N28.1 Cyst of kidney, acquired; R19.00 Intra-abdominal and pelvic swelling, mass and lump, unspecified site; Z90.710 Acquired absence of both cervix and uterus
CPT/HCPCS: 36415; 76700; 76830; 76856; 80053; 81001; 84443; 85025

== ENCOUNTER → 2020-04-21 13:31 | Outpatient (CLI) | payer OTHER, MEDICAID, SELFPAY ==
--- NOTE | 2020-04-21 13:32 | DI.MRI.S_ITS ---
PROCEDURE: MR PELVIS WO/W CON INDICATIONS: adnexal mass TECHNIQUE: Coronal HASTE, sagittal breath-hold T2 FSE; axial T1 FSE with and without fat saturation through the pelvis. Optional long- and short-axis uterine nonbreath-hold T2 FSE through the uterus. Sagittal or axial dynamic VIBE during administration of contrast. Post-contrast axial or coronal VIBE/2-D FLASH with fat saturation from the iliac crests to the symphysis. Optional diffusion weighted imaging and ADC may be performed. COMPARISON: [facility], , US PELVIC COMPLETE, 04/11/2020, 14:46. FINDINGS: Image quality: Excellent. Uterus: Uterus is surgically absent. Adnexa: Bilateral ovaries are demonstrated along the pelvic sidewalls. Both ovaries are normal in size, without suspicious cystic or solid lesions. A few small follicles are demonstrated within the ovaries bilaterally. Elsewhere, no pelvic masses identified.. Urinary system: Bladder wall is normal in thickness. Distal ureters are non distended. Urethra appears normal in morphology. Nodes and vessels: No pelvic or inguinal adenopathy by size criteria. Iliac vessels are normal in size. Bowel and peritoneum: No pathologic free pelvic fluid. Inferior colon and small bowel loops are normal in caliber. Soft tissues: No inguinal hernias. Bones: Marrow demonstrates normal overall signal. IMPRESSION: 1. Bilateral normal-sized ovaries demonstrated along the pelvic sidewalls. 2. Otherwise, no suspicious adnexal or pelvic masses identified. Dictated by: Myles Hernandez M.D. on 04/21/2020 at 16:33 Approved by: Myles Hernandez M.D. on 04/21/2020 at 16:41
== END ==
PROVIDERS: PCP Nurse Practitioner Family; Referring Provider Nurse Practitioner Family; Visit Provider Nurse Practitioner Family
DX: N94.89 Other specified conditions associated with female genital organs and menstrual cycle (principal); Z90.710 Acquired absence of both cervix and uterus
CPT/HCPCS: 72197; A9579

== ENCOUNTER → 2020-05-02 09:06 | Outpatient (CLI) | payer OTHER, MEDICAID, SELFPAY ==
--- NOTE | 2020-05-02 09:07 | DI.RAD.S_ITS ---
PROCEDURE: XR KUB INDICATIONS: kidney stone TECHNIQUE: One view of the abdomen acquired. COMPARISON: None. FINDINGS: Surgical changes and devices: None. Bowel: Bowel gas pattern is normal. Significant stool is present. Soft tissues: Punctate calcification is noted along the superior shadows of the kidneys bilaterally. Visualized solid organ contours appear normal in size. Bones: No suspicious bony lesions. IMPRESSION: Punctate calcifications overlying the renal shadows bilaterally as above. It is noted that there is significant stool overlying the renal shadows and whether this is true nephrolithiasis or bowel contents cannot be determined. If concern persists, CT is recommended. Dictated by: Joanna Rodríguez M.D. on 05/02/2020 at 9:43 Approved by: Joanna Rodríguez M.D. on 05/02/2020 at 9:45
== END ==
PROVIDERS: PCP Nurse Practitioner Family; Referring Provider Specialist; Visit Provider Specialist
DX: N20.0 Calculus of kidney (principal); R31.29 Other microscopic hematuria; N39.3 Stress incontinence (female) (male)
CPT/HCPCS: 74018; 81002; 99213

== ENCOUNTER → 2020-05-15 07:30 | Outpatient (CLI) | payer OTHER, MEDICAID, SELFPAY ==
--- NOTE | 2020-05-15 07:31 | DI.CT.S_ITS ---
PROCEDURE: CT KIDNEY URETER BLADDER (KUB) INDICATIONS: Kidney stones TECHNIQUE: Noncontrast 5 mm thick sections acquired from the diaphragms to the symphysis. 5 mm thick coronal and sagittal reformats were then performed. For radiation dose reduction, the following was used: automated exposure control, adjustment of mA and/or kV according to patient size. COMPARISON: None. FINDINGS: Image quality: Excellent. Lung bases: Lung bases are clear. Heart size is normal. Urinary system: Both kidneys are normal in size. Bilateral less than 5 mm kidney stones. No hydronephrosis or perinephric fat stranding. Both ureters appear non-dilated throughout their expected courses. Bladder wall thickness is normal; no calcified bladder stones. Other solid organs: Liver is normal in size. Gallbladder negative . Pancreas is normal in contours. Spleen is normal in size. No adrenal nodules. Peritoneum and bowel: Unenhanced bowel loops demonstrate normal wall thickness and caliber. No free fluid or air. Colonic diverticulosis is seen without evidence of acute complication. Normal appendix. Nodes and vessels: No retroperitoneal or mesenteric adenopathy by size criteria. Aorta and inferior vena cava are normal in caliber. Abdominal wall: No ventral hernias. Pelvis: No free pelvic fluid. No inguinal hernias or adenopathy. Bones: No suspicious bony lesions. No vertebral body compression fractures. IMPRESSION: Bilateral sub 5 mm nephrolithiasis. No evidence of urinary obstruction Dictated by: Marquez Sierra M.D. on 05/15/2020 at 8:08 Approved by: Marquez Sierra M.D. on 05/15/2020 at 8:21
== END ==
PROVIDERS: PCP Nurse Practitioner Family; Referring Provider Nurse Practitioner Family; Visit Provider Specialist
DX: N20.0 Calculus of kidney (principal)
CPT/HCPCS: 74176

== ENCOUNTER → 2020-05-16 13:35 | Outpatient (CLI) | payer OTHER, MEDICAID, SELFPAY ==
[2020-05-16 15:14] LABS: Calcium 9.8 mg/dL (8.4-10.2); Uric Acid 4.9 mg/dL (2.5-6.2)
[2020-05-17 08:03] LABS: Parathyroid Hormone Int 25 pg/mL (15-65)
== END ==
PROVIDERS: PCP Nurse Practitioner Family; Referring Provider Specialist; Visit Provider Specialist
DX: N20.0 Calculus of kidney (principal)
CPT/HCPCS: 36415; 82310; 83970; 84550

== ENCOUNTER → 2020-07-25 08:28 | Outpatient (CLI) | payer OTHER, MEDICAID, SELFPAY ==
--- NOTE | 2020-07-25 08:29 | DI.RAD.S_ITS ---
PROCEDURE: XR KNEE RT 3V INDICATIONS: right knee pain TECHNIQUE: 3 views of the knee were acquired. COMPARISON: None. FINDINGS: Bones: No fracture. Scattered degenerative subchondral sclerosis and spurring. Mild narrowing of the medial joint space Soft tissues: Small joint effusion. IMPRESSION: Mild degenerative changes. Small joint effusion If the patient's pain or other symptoms persist, consider further evaluation with MRI Dictated by: Marquez Sierra M.D. on 07/25/2020 at 13:45 Approved by: Marquez Sierra M.D. on 07/25/2020 at 13:45
--- NOTE | 2020-07-25 08:49 | DI.US.S_ITS ---
PROCEDURE: US EXTREMITY NONVASC LOWER RT INDICATIONS: posterior knee pain with swelling TECHNIQUE: Real-time scanning was performed of the right knee , with image documentation. COMPARISON: None. FINDINGS: In the area of pain and swelling, no discrete sonographic lesion identified. No Grigsby's cyst is identified. IMPRESSION: Negative examination. If the patient's pain or other symptoms persist, consider further evaluation with MRI Dictated by: Marquez Sierra M.D. on 07/25/2020 at 15:19 Approved by: Marquez Sierra M.D. on 07/25/2020 at 15:20
== END ==
PROVIDERS: PCP Nurse Practitioner Family; Referring Provider Registered Nurse; Visit Provider Registered Nurse
DX: M25.561 Pain in right knee (principal); M25.461 Effusion, right knee
CPT/HCPCS: 73562; 76882

== ENCOUNTER → 2020-08-01 16:25 | Outpatient (CLI) | payer OTHER, MEDICAID, SELFPAY | PROVIDERS: PCP Nurse Practitioner Family; Visit Provider Obstetrics & Gynecology | DX: L02.215 Cutaneous abscess of perineum (principal); N76.4 Abscess of vulva | CPT/HCPCS: 87070; 87077; 87147; 87186; 87205 ==

== ENCOUNTER → 2020-10-17 09:30 | Outpatient (CLI) | payer OTHER, MEDICAID, SELFPAY ==
[2020-10-17 09:34] LABS: WBC Urine None Seen (0-5/HPF)
[2020-10-17 09:57] LABS: Hemoglobin 13.7 g/dL (12.0-16.0); Mean Corpuscular HGB Conc 33.5 % (30-36); Mean Corpuscular Hemoglobin 31.7 PG (26-34); Mean Corpuscular Volume 94.7 fL (80-100); Platelet Count 347 X10^3/uL (150-400); Red Blood Cell Count 4.33 X10^6/uL (4.0-5.2); Red Cell Distribution Width 12.8 % (11.6-14.8); White Blood Cell Count 6.1 X10^3/uL (4.5-11.0)
[2020-10-17 10:14] LABS: Appearance Urine UA CLEAR; Bilirubin Urine UA NEGATIVE (NEGATIVE); Color Urine UA YELLOW; Glucose Urine UA NEGATIVE (Negative); Ketones Urine UA NEGATIVE (NEGATIVE); Leukocyte Esterase Urine UA NEGATIVE (NEGATIVE); Nitrite Urine UA NEGATIVE (Negative); Occult Blood Urine UA TRACE-LYSED (Negative); Protein Urine UA NEGATIVE (Negative); Urobilinogen Urine UA 0.2 E.U./dL (0.2)
[2020-10-17 10:18] LABS: Erythrocyte Sedimentation Rate 9 MM/HR (0-20)
[2020-10-17 10:36] LABS: Bacteria Urine Few (2-10); Culture Indicated Urine Cult Not Indicated; RBC Urine 1-5/HPF (0-5/HPF); Squamous Epithelial Cell Urine 1-5 /HPF (0-5/HPF); pH Urine UA 6.5 (4.5-8.0)
[2020-10-17 10:49] LABS: Alanine Aminotransferase 27 IU/L (<35); Albumin 4.4 g/dL (3.5-5.0); Albumin Globulin Ratio 1.5 (1.0-2.8); Alkaline Phosphatase 65 U/L (38-126); Aspartate Aminotransferase 27 IU/L (14-36); BUN Creatinine Ratio 16.9 (6-22); Bilirubin Total 0.3 mg/dL (0.2-1.3); Blood Urea Nitrogen 13 mg/dL (7-17); Calcium 10.2 mg/dL (8.4-10.2); Carbon Dioxide 24 mmol/L (22-32); Chloride 105 mmol/L (98-107); Estimated Glomerular Filt Rate > 60.0 mL/min (>60); Glucose 102 mg/dL (70-100); HEMOLYSIS < 15 (0-50); Potassium 4.2 mmol/L (3.4-5.1); Sodium 139 mmol/L (137-145); Total Protein 7.4 g/dL (6.3-8.2)
[2020-10-17 15:22] LABS: Hemoglobin A1C% w Est Avg Glu 5.8 % (4.0-6.0)
== END ==
PROVIDERS: PCP Nurse Practitioner Family; Referring Provider Nurse Practitioner Family; Visit Provider Nurse Practitioner Family
DX: M25.461 Effusion, right knee (principal); N20.0 Calculus of kidney; R31.9 Hematuria, unspecified; R73.9 Hyperglycemia, unspecified
CPT/HCPCS: 36415; 80053; 81001; 83036; 85027; 85651

== ENCOUNTER → 2020-10-20 07:41 | Outpatient (CLI) | payer OTHER, MEDICAID, SELFPAY ==
[2020-10-20 07:48] LABS: WBC Urine None Seen (0-5/HPF)
[2020-10-20 09:05] LABS: Appearance Urine UA CLEAR; Bilirubin Urine UA NEGATIVE (NEGATIVE); Color Urine UA YELLOW; Glucose Urine UA NEGATIVE (Negative); Ketones Urine UA NEGATIVE (NEGATIVE); Leukocyte Esterase Urine UA NEGATIVE (NEGATIVE); Nitrite Urine UA NEGATIVE (Negative); Occult Blood Urine UA TRACE-INTACT (Negative); Protein Urine UA NEGATIVE (Negative); Specific Gravity Urine UA 1.015 (1.000-1.035); Urobilinogen Urine UA 0.2 E.U./dL (0.2)
[2020-10-20 09:27] LABS: pH Urine UA 6.5 (4.5-8.0)
[2020-10-20 09:28] LABS: Bacteria Urine Occasional (0-1); Culture Indicated Urine Cult Not Indicated; RBC Urine 0-1/HPF (0-5/HPF)
== END ==
PROVIDERS: PCP Nurse Practitioner Family; Referring Provider Nurse Practitioner Family; Visit Provider Nurse Practitioner Family
DX: R31.9 Hematuria, unspecified (principal)
CPT/HCPCS: 81001

== ENCOUNTER → 2020-12-16 12:33 | Outpatient (CLI) | payer OTHER, MEDICAID, SELFPAY ==
--- NOTE | 2020-12-16 12:35 | DI.MRI.S_ITS ---
PROCEDURE: MR KNEE RT WO CON INDICATIONS: right knee pain, swelling TECHNIQUE: Noncontrast sagittal PD fast spin echo and T2 fast spin echo with fat saturation, sagittal 3-D FLASH with fat saturation; coronal T1 spin echo and PD fast spin echo with fat saturation, and axial PD fast spin echo with fat saturation through the knee. COMPARISON: None. FINDINGS: Image quality: Excellent. Menisci: Oblique involving posterior horn of medial meniscus is seen extending to inferior articulating surface. There is no evidence of focal lateral meniscal tear. Meniscal root ligaments are intact. Cruciate ligaments: The anterior and posterior cruciate ligaments appear intact. Medial structures: There is low-grade proximal MCL sprain. The posterior oblique ligament, semimembranosus tendon insertions, oblique popliteal ligament, and meniscocapsular junction appear intact. Visualized portions of the pes anserinus tendons appear normal. No abnormal bursal fluid. Lateral structures: The lateral collateral ligament, long and short heads of the biceps femoris tendon appear intact. The popliteus tendon appears normal; the popliteofibular ligament appears intact. The posterosuperior and anteroinferior popliteomeniscal fascicles appear intact. The arcuate and fabellofibular ligaments appear intact, on either side of the lateral inferior geniculate artery. Iliotibial band appears normal. Anterior structures: The quadriceps and patellar tendons appear intact. Patellar alignment is normal. No femoral trochlear dysplasia or ventral trochlear prominence. No edema in the infrapatellar fat pad. Bones and cartilage: No bone marrow contusions or fractures. Mild tricompartmental osteoarthritis and low-grade chondromalacia is seen slightly more prominent in medial femoral tibial compartment. Joint space: There is moderate amount of joint fluid. No Grigsby's cyst. Normal appearing synovial plicae are incidentally noted. IMPRESSION: 1. Subtle oblique tear involving posterior horn of medial meniscus extending to inferior articulating surface. No focal lateral meniscal tear. 2. Cruciate ligaments are intact. Low-grade proximal MCL sprain. 3. Mild tricompartmental osteoarthritis and low-grade chondromalacia. Moderate amount of joint fluid. No fracture or dislocation. Dictated by: Tre Pham M.D. on 12/18/2020 at 9:54 Approved by: Tre Pham M.D. on 12/18/2020 at 10:05
--- NOTE | 2020-12-16 12:35 | DI.MRI.S_ITS ---
PROCEDURE: MR KNEE LT WO CON INDICATIONS: left knee pain, swelling TECHNIQUE: Noncontrast sagittal PD fast spin echo and T2 fast spin echo with fat saturation, sagittal 3-D FLASH with fat saturation; coronal T1 spin echo and PD fast spin echo with fat saturation, and axial PD fast spin echo with fat saturation through the knee. COMPARISON: None FINDINGS: Image quality: Excellent. Menisci: There is linear horizontal high T2 signal intensity traversing the medial meniscal body and posterior horn, demonstrating inferior articular surface extension, indicating complex tearing. Lateral meniscus is intact. Cruciate ligaments: The anterior and posterior cruciate ligaments appear intact. Medial structures: The medial collateral ligament appears intact. Visualized portions of the pes anserinus tendons appear normal. No abnormal bursal fluid. Lateral structures: The lateral collateral ligament, long and short heads of the biceps femoris tendon appear intact. The popliteus tendon appears normal. Iliotibial band appears normal. Anterior structures: The quadriceps and patellar tendons appear intact. Patellar alignment is normal. No femoral trochlear dysplasia or ventral trochlear prominence. No edema in the infrapatellar fat pad. Bones and cartilage: No bone marrow contusions or fractures. Mild articular cartilage loss diffusely overlies the weight-bearing aspects of the medial femoral condyle and medial tibial plateau. Articular cartilage fibrillation overlies the medial and lateral patellar facets. Joint space: There is a small knee joint effusion and a small ganglion cyst along the popliteus. No Grigsby's cyst. Normal appearing synovial plicae are incidentally noted. IMPRESSION: 1. Medial meniscal tearing. 2. Knee joint effusion. Small ganglion cyst along the popliteus. 3. Mild medial and patellofemoral compartment articular cartilage loss. Dictated by: Izaiah Beverly M.D. on 12/18/2020 at 8:47 Approved by: Izaiah Beverly M.D. on 12/18/2020 at 9:05
== END ==
PROVIDERS: PCP Nurse Practitioner Family; Referring Provider Registered Nurse; Visit Provider Registered Nurse
DX: M25.562 Pain in left knee (principal); S83.232A Complex tear of medial meniscus, current injury, left knee, initial encounter; M25.462 Effusion, left knee; M67.462 Ganglion, left knee; M25.561 Pain in right knee; S83.241A Other tear of medial meniscus, current injury, right knee, initial encounter; M17.11 Unilateral primary osteoarthritis, right knee; M94.261 Chondromalacia, right knee
CPT/HCPCS: 73721

== ENCOUNTER → 2021-02-13 13:20 | Outpatient (CLI) | payer OTHER, MEDICAID, SELFPAY ==
--- NOTE | 2021-02-13 13:23 | DI.RAD.S_ITS ---
PROCEDURE: XR SACRUM COCCYX MIN 2V INDICATIONS: painful TECHNIQUE: 3 views of the sacrum and coccyx acquired. COMPARISON: None. FINDINGS: Bones: No fractures or dislocations. No suspicious bony lesions. Soft tissues: Visualized bowel gas pattern is normal. No suspicious soft tissue densities. IMPRESSION: Normal for age, source of current pain symptoms is not seen. Please note that MR scanning provides a more accurate assessment for this area of the pelvic anatomy. Dictated by: Douglas Mcdaniel M.D. on 02/13/2021 at 13:52 Approved by: Douglas Mcdaniel M.D. on 02/13/2021 at 13:53
--- NOTE | 2021-02-13 13:23 | DI.RAD.S_ITS ---
PROCEDURE: XR KUB INDICATIONS: renal stones TECHNIQUE: One view of the abdomen acquired. COMPARISON: [facility], CT, CT KIDNEY URETER BLADDER (KUB), 05/15/2020, 7:40. [facility], CR, XR KUB, 05/02/2020, 8:59. FINDINGS: Surgical changes and devices: None. Bowel: Bowel gas pattern is normal but there is stool within the colon superimposed on the kidneys bilaterally.. Soft tissues: No suspicious abdominal calcifications. Visualized solid organ contours appear normal in size. Bones: No suspicious bony lesions. IMPRESSION: Quality of visualization is limited. Several pelvic phleboliths are noted at the pelvic sidewalls. Prior urinary tract stones have been documented by CT scanning to be very small in size, the largest of which is located at the collecting system of the right kidney, but with superimposed stool that particular area is not accurately visualized. A suspected stone in that area could actually represent stool content. Dictated by: Douglas Mcdaniel M.D. on 02/13/2021 at 14:11 Approved by: Douglas Mcdaniel M.D. on 02/13/2021 at 14:12
== END ==
PROVIDERS: PCP Registered Nurse; Referring Provider Physician Assistant; Visit Provider Specialist
DX: M53.3 Sacrococcygeal disorders, not elsewhere classified (principal); N20.0 Calculus of kidney
CPT/HCPCS: 72220; 74018

== ENCOUNTER → 2021-02-20 12:28 | Outpatient (CLI) | payer OTHER, MEDICAID, SELFPAY ==
--- NOTE | 2021-02-20 12:29 | DI.CT.S_ITS ---
PROCEDURE: CT KIDNEY URETER BLADDER (KUB) INDICATIONS: complaints of left sided pain TECHNIQUE: Axial sections were acquired from the lung bases to the pubic symphysis. Coronal and sagittal reformats were performed. For radiation dose reduction, the following was used: automated exposure control, adjustment of mA and/or kV according to patient size. COMPARISON:[facility], CT, CT KIDNEY URETER BLADDER (KUB), 05/15/2020, 7:40. FINDINGS: Image quality: Excellent. Lung bases: Unremarkable. Heart: No significant findings. URINARY: Right Kidney: Nonobstructing right renal calculi are again seen measures up to 4 mm in size in midpole of right kidney. No hydronephrosis. Right Ureter: No hydroureter. Left Kidney: Nonobstructing left renal calculi are again seen measures up to 3 mm in size. No hydronephrosis. Left Ureter: No hydroureter. Bladder: Normal wall thickness. No stones. ABDOMEN: Liver: Unremarkable. Gallbladder: Unremarkable. Biliary ducts: Unremarkable. Pancreas: Unremarkable. Spleen: Unremarkable. Adrenal Glands: Unremarkable. Stomach and Bowel: There is no bowel obstruction. No abnormal bowel wall thickening or mesenteric fat stranding. Appendix is visualized and is within normal limits. Mild colonic diverticulosis is seen, no CT evidence of acute diverticulitis. No abscess collection. Peritoneum: No abnormal intraperitoneal fluid. No free air. Ventral Wall: No hernia. Abdominal Nodes: No enlarged retroperitoneal or mesenteric lymph nodes. Vessels: Aorta and inferior vena cava are normal in size. PELVIS: Pelvic Organs: Unremarkable. Pelvic Nodes: Unremarkable. Miscellaneous: No inguinal hernias are seen. Bones: Degenerative endplate changes are noted at L4-5 and L5-S1 levels with vacuum disc phenomenon. No acute vertebral body compression fracture. IMPRESSION: 1. Bilateral nonobstructing renal calculi as above. No hydronephrosis or hydroureter. Normal appearing urinary bladder. 2. No bowel obstruction. No abnormal bowel wall thickening. Normal appendix. Colonic diverticulosis without CT evidence of acute diverticulitis. No free fluid or free air. Dictated by: Tre Pham M.D. on 02/20/2021 at 15:06 Approved by: Tre Pham M.D. on 02/20/2021 at 15:10
== END ==
PROVIDERS: PCP Registered Nurse; Referring Provider Specialist; Visit Provider Specialist
DX: N20.0 Calculus of kidney (principal); K57.90 Diverticulosis of intestine, part unspecified, without perforation or abscess without bleeding
CPT/HCPCS: 74176

== ENCOUNTER → 2021-05-01 12:53 | Outpatient (CLI) | payer OTHER, MEDICAID, SELFPAY ==
--- NOTE | 2021-05-01 15:37 | DIET.PN1 ---
Dietary Progress Note Assessment: 45y F attending RD visit for help with implementing diet to reduce risk for continued kidney stone formation. 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 Pt feels her second test results were due to the initiation of supplementing with the drink mix LiquidIV which is available over the counter and at [employer] as an electrolyte drink mix. One packet contains 500mg sodium, 11g added sugar, and other vitamins/minerals. Pt was trying to increase amount of water she was drinking so would put a packet in each water bottle from 4-8 daily leading to 2,000-4,000mg sodium daily from this mix alone and 44-88g added sugar. Pt did not want to take the potassium citrate recommended to her by urologist because of the label warnings. Pt trying to eat unprocessed food diet and limit medications so erroneously started this because it contained potassium (when in reality she needed the citrate). Pts high urine calcium and high urine oxalate very well could be related to this liquidIV supplement secondary to high dietary sodium intake. 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 She has been chronically dehydrated because of this career choice with limited opportunities to drink water throughout the day. Pt feels she is very detail oriented and likes following plans and schedules. She does not like to cook and doesn't feel she does a good job so prefers to be given recipes she can use to batch cook. Pt doesn't mind eating the same thing daily for a week before cycling to something else. Usual Day: B: coffee-pt drinks 4+ cups daily usually does not eat breakfast but sometimes breakfast bar or eggs. Pt prefers to blend her veggies into smoothie form rather than cook them. L: tuna or salmon salad wrap c cream cheese and lettuce D: something her roomate (who is health conscious) makes Nutrition Diagnosis: 1. 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 2. 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 Interventions: 1. Reviewed MNT for Kidney Stones focusing on areas pertaining to pt. Using handout, problem solved with and educated pt on interventions to support lowering risk for kidney stones. 2. Collaborated c pt on meal plan to support lowering risk for kidney stones. (B: oatbars, pumpkin bread, egg bites; L: pb+honey sandwich, ramos and pumpkin burrito, salmon/tuna wrap, all c veggies) Pt Goals: 1. Pt will aim to drink 10-12c fluids daily with at least half coming from pure water. 2. Pt resistant to potassium citrate supplementation. Pt can consume 4oz lemon or [place] juice in water for adequate citrate source. Monitoring/Evaluations: f/u in 1w to review material and continue supporting nutrition plan (pt has 6 total visits approved). Electronically Signed by: Laurel Vasquez 05/01/21 15:37 Clinical Dietitian [address] [address]
== END ==
PROVIDERS: PCP Nurse Practitioner Family; Referring Provider Registered Nurse; Visit Provider Registered Nurse
DX: Z87.442 Personal history of urinary calculi (principal); Z71.3 Dietary counseling and surveillance
CPT/HCPCS: 97802

== ENCOUNTER → 2021-05-08 12:47 | Outpatient (CLI) | payer OTHER, MEDICAID, SELFPAY ==
--- NOTE | 2021-05-08 12:57 | DIET.OUTPTC ---
Dietary Outpatient Consultation Note Consultation Date: 05/08/2021 45y F attending second nutrition visit for help with diet to avoid repeat kidney stones. Since last visit, pt has been focused on increasing fluid intake and started putting lemon or [place] juice in her water for citrate source. Pt brings in partially consumed 1 L bottle to visit. Pt has talked to roomates, they are eating the foods at home which are unhealthy then planning to meal prep on weekends to ensure good food for dinner each day. Pt avoiding high oxalate foods and is no longer taking the LiquidIV drink mix. Pt presents today wanting help with recipes to prep on weekend for healthy dinners. Pt prefers to be mostly pescatarian which is great for her kidney health. Looked at recipes c pt and printed 8 soup and sheet porras meals which are kidney friendly and desirable per patient. Pt has three ring binder she stores nutrition visit information in for easy access between visits. Pt desires Litholink repeat test in 3mo to see how her nutrition interventions are working, this RD agrees this would be favorable for continued compliance to nutrition reccs. Nutrition Diagnosis: 1. 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 2. 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 RD f/u in 3w to continue refining plan and continue nutrition education. Electronically Signed by: Laurel Vasquez 05/08/21 12:57 Clinical Dietitian [address] [place] [address]
== END ==
PROVIDERS: PCP Nurse Practitioner Family; Referring Provider Nurse Practitioner Family; Visit Provider Nurse Practitioner Family
DX: Z87.442 Personal history of urinary calculi (principal); Z71.3 Dietary counseling and surveillance
CPT/HCPCS: 97803

== ENCOUNTER → 2021-06-05 13:01 | Outpatient (CLI) | payer OTHER, MEDICAID, SELFPAY ==
--- NOTE | 2021-06-05 13:05 | DIET.PN1 ---
Dietary Progress Note 45y F attending RD f/u for help with diet to reduce recurrence of kidney stones. Pt brought in nutrition supplements recommended by acquaintance, an A,D,K complex with megadosing of each nutrient (1,800mcg Vit K2) and a separate Vitamin K2 (600mcg). Pt curious if these would benefit her. Pt has another friend taking fruit pectin for their joints (citric acid). Pt kept food log x2w to show RD, pt doing well with weekend meal prep. Pt limiting self to 4c coffee daily when she used to easily drink double this. Pt is drinking lemon juice in water daily to increase urine citrate levels. Discussed these supplements not good choice for pt as her favorite vegetables are high in Vitamin A as beta carotene and this supp provides 20x BEAM DOFFER for Vitamin K. Pt can try pectin if she desires, contains citric acid, not ascorbic acid, so will not contribute to kidney stone risk. Long discussion about nutrition supplements not being FDA regulated and a multi-billion dollar industry. Pt would benefit from MVI, Vit D, and potentially collagen to support her osteoarthritis. However pt doing wonderful work in changing diet to be supportive of overall health (quit smoking cigarettes, limited etoh, eating more whole foods). f/u in 3w to continue education and nutrition monitoring. Electronically Signed by: Laurel Vasquez 06/05/21 13:05 Clinical Dietitian [address] [address]
== END ==
PROVIDERS: PCP Nurse Practitioner Family; Referring Provider Nurse Practitioner Family; Visit Provider Nurse Practitioner Family
DX: Z87.442 Personal history of urinary calculi (principal); Z71.3 Dietary counseling and surveillance
CPT/HCPCS: 97803

== ENCOUNTER → 2021-06-26 12:40 | Outpatient (CLI) | payer OTHER, MEDICAID, SELFPAY ==
--- NOTE | 2021-06-26 12:42 | DIET.PN1 ---
Dietary Progress Note 45y F attending f/u for kidney stones. Pt is drinking lemon water daily, has it in her daily routine to increase urine citrate. Pt returned supplements she was given by friend, will defer any supplementation at this time to focus on food sources of nutrients. Pts third roomate is moving out this weekend. Pt happy about this. She is having difficulty meal prepping on weekends with the extra body in the house. Pt had roomate are meal planning this weekend with focus on crockpot soups. Looked at recipes online with pt and printed appropriate healthy options for her. Monitoring/Evaluations: f/u in Jul 2021 after next litholink test to further refine nutrition reccs for kidney stones. Electronically Signed by: Laurel Vasquez 06/26/21 12:42 Clinical Dietitian [address] [address]
== END ==
PROVIDERS: PCP Nurse Practitioner Family; Referring Provider Nurse Practitioner Family; Visit Provider Nurse Practitioner Family
DX: Z87.442 Personal history of urinary calculi (principal); Z71.3 Dietary counseling and surveillance
CPT/HCPCS: 97803

== ENCOUNTER → 2021-11-05 15:44 | Outpatient (CLI) | payer OTHER, MEDICAID, SELFPAY ==
[2021-11-05 16:19] LABS: COVID19 -Nasal RAPID Negative (Negative)
== END ==
PROVIDERS: PCP Nurse Practitioner Family; Visit Provider Surgery
DX: Z20.822 Contact with and (suspected) exposure to COVID-19; Z01.812 Encounter for preprocedural laboratory examination
CPT/HCPCS: 87635; C9803

== ENCOUNTER 2021-11-06 12:17 | Day surgery (SDC) | payer OTHER, MEDICAID, SELFPAY ==
[2021-11-06] MEDS: LACTATED RINGERS 1,000 ML 200 ML IV (12:52)
[2021-11-06 12:53] VITALS: BP 135/85; PULSE 88; RESP 16; TEMP 36.7; O2SAT 99; BMI 26.6
--- NOTE | 2021-11-06 13:01 | SUR.PREOP ---
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
[2021-11-06] MEDS: MIDAZOLAM 5 MG/5 ML VIAL IV (13:49)
[2021-11-06] MEDS: fentaNYL 250 MCG/5 ML INJ IV (13:49)
--- NOTE | 2021-11-06 13:50 | PM.PREOP ---
Pre-operative Note Interval Note History & Physical reviewed/Exam performed by Physician: Yes Changes to H&P: No
--- NOTE | 2021-11-06 14:13 | P.OP.COLON_ITS ---
Operative Date/Time/Diagnoses Date of procedure: 11/06/21 Time of procedure: 14:13 Pre-op diagnosis: screening Post-op diagnosis: same Procedure & Clinicians Study performed: colonoscopy Same procedure as scheduled: Yes Indications: screening Surgeon: Armani Maria Procedure Notes Procedure in detail: Medications: Conscious sedation using 7 mg IV midazolam and 200mcg IV of fentanyl The history and physical was performed/updated and the patient is ASA class is 2. The procedure was discussed in detail with the patient. Potential risks complications including infection, bleeding, missed diagnosis, perforation, need for surgery, and were explained. Their questions were answered and informed consent was obtained. Patient was brought to the procedure room and placed standard monitoring equipment. The patient's vital signs were monitored continuously throughout the entire procedure. Prior to starting time-out was performed. The patient was placed in the left lateral recumbent position. Procedural sedation was adminis tered. Examination began with a thorough inspection of the perianal area there was no evidence of fissures, fistulae, external hemorrhoids or cutaneous malignancy. The colonoscopy scope was then placed into the anal canal and was advanced to the cecum, which was identified by the ileocecal valve, the appendiceal orifice and the confluence of the taenia. The scope was then slowly withdrawn examining colon thoroughly in all directions, irrigating it of any residual stool. FINDINGS 1. No masses or polyps 2. Normal healthy colon 3. Internal hemorrhoids The patient tolerated the procedure well. They will be discharged once criteria are met. The prep was of good/excellent quality. The withdrawl time was 6 minutes. The sedation time was 21 minutes. Specimen(s): none sent Complications: none Impression: Normal colonoscopy Post-procedure Recommendations: Colonoscopy in 10 years and High fiber diet Disposition: same day surgery
[2021-11-06 14:16] VITALS: BP 118/81; PULSE 90; RESP 16; TEMP 37.3; O2SAT 99
[2021-11-06 14:21] VITALS: BP 106/7; PULSE 90; RESP 15; O2SAT 99
[2021-11-06 14:26] VITALS: BP 111/75; PULSE 98; RESP 15; O2SAT 99
[2021-11-06 14:31] VITALS: BP 124/85; PULSE 104; RESP 16; O2SAT 97
[2021-11-06 14:35] VITALS: BP 123/76; PULSE 94; RESP 17; O2SAT 98
== END 2021-11-06 14:47 | disposition home or self-care (01) ==
PROVIDERS: PCP Nurse Practitioner Family; Referring Provider Surgery; Visit Provider Surgery
PROC: 0DJD8ZZ Inspection of Lower Intestinal Tract, Via Natural or Artificial Opening Endoscopic (ICD-10-PCS; CPT 45378; principal; 2021-11-06 13:45)
DX: Z12.11 Encounter for screening for malignant neoplasm of colon (principal); K64.8 Other hemorrhoids
CPT/HCPCS: 45378; 99152; J2250; J3010

== ENCOUNTER → 2022-03-08 09:25 | Outpatient (CLI) | payer OTHER, MEDICAID, SELFPAY | PROVIDERS: PCP Nurse Practitioner Family; Visit Provider Student in an Organized Health Care Education/Training Program | DX: R30.0 Dysuria (principal) | CPT/HCPCS: 81002; 87086 ==

== ENCOUNTER → 2022-08-06 09:42 | Outpatient (CLI) | payer OTHER, MEDICAID, SELFPAY ==
[2022-08-06 11:00] LABS: Alanine Aminotransferase 16 IU/L (<35); Albumin 4.3 g/dL (3.5-5.0); Albumin Globulin Ratio 1.5 (1.0-2.8); Alkaline Phosphatase 57 U/L (38-126); Aspartate Aminotransferase 20 IU/L (14-36); BUN Creatinine Ratio 15.9 (6-22); Bilirubin Total 0.4 mg/dL (0.2-1.3); Blood Urea Nitrogen 14 mg/dL (7-17); Calcium 9.4 mg/dL (8.4-10.2); Carbon Dioxide 24 mmol/L (22-32); Chloride 107 mmol/L (98-107); Estimated Glomerular Filt Rate > 60 mL/min (>60); Globulin 2.8 g/dL (1.7-4.1); Glucose 83 mg/dL (70-100); HEMOLYSIS < 15 (0-50); Potassium 4.3 mmol/L (3.4-5.1); Sodium 138 mmol/L (137-145); Total Protein 7.1 g/dL (6.3-8.2)
== END ==
PROVIDERS: PCP Family Medicine; Referring Provider Family Medicine; Visit Provider Family Medicine
DX: R73.9 Hyperglycemia, unspecified (principal)
CPT/HCPCS: 36415; 80053

== ENCOUNTER → 2022-10-18 13:46 | Outpatient (CLI) | payer OTHER, MEDICAID, SELFPAY ==
--- NOTE | 2022-10-18 13:47 | DI.RAD.S_ITS ---
PROCEDURE: XR SACRUM COCCYX MIN 2V INDICATIONS: coccyx pain TECHNIQUE: 3 views of the sacrum and coccyx acquired. COMPARISON: [facility], CR, XR SACRUM COCCYX MIN 2V, 02/13/2021, 13:21. FINDINGS: Bones: No fractures or dislocations. No suspicious bony lesions. Degenerative changes of the lumbosacral junction. Lower lumbar spondylosis. Soft tissues: Visualized bowel gas pattern is normal. No suspicious soft tissue densities. IMPRESSION: Sacrum and coccyx without acute fracture or malalignment. Moderate multilevel lower lumbar spondylosis. Dictated by: Donal Isaac M.D. on 10/18/2022 at 16:19 Approved by: Donal Isaac M.D. on 10/18/2022 at 16:20
== END ==
PROVIDERS: PCP Family Medicine; Referring Provider Family Medicine; Visit Provider Family Medicine
DX: M47.816 Spondylosis without myelopathy or radiculopathy, lumbar region (principal); M51.36 Other intervertebral disc degeneration, lumbar region; G89.29 Other chronic pain; M53.3 Sacrococcygeal disorders, not elsewhere classified; M54.41 Lumbago with sciatica, right side; M54.42 Lumbago with sciatica, left side
CPT/HCPCS: 72220